=== PATIENT | male | born 1950 | race Caucasian/White ===

== ENCOUNTER 2022-09-16 12:57 | Emergency (ER) | payer MEDICARE, OTHER ==
[2022-09-16 13:59] LABS: #Eosinphils 0.1 thou/uL (0.0-0.7); #Lymphocytes 1.1 thou/uL (1.20-3.40); #Monocytes 0.8 thou/uL (0.11-0.59); %Basophils 0.4 % (0.0-1.0); %Eosinophils 0.7 % (0.0-10.0); %Lymphocytes 11.4 % (21.0-51.0); %Monocytes 7.5 % (0.0-10.0); Hemoglobin 13.3 g/dL (14.0-18.0); Large Platelets SLIGHT (None Seen); MDiff Complete? YES; Mean Corpuscular HGB CONC 33.3 g/dL (32.0-36.0); Mean Corpuscular Hemoglobin 30.8 pg (27.0-31.0); Mean Corpuscular Volume 92.4 fl (78.0-98.0); Mean Platelet Volume 14.6 fL (7.4-10.4); Platelet Count 135 10x3/uL (130-400); RBC Distribution Width 11.1 % (11.5-14.5); Red Blood Cell (RBC) Count 4.33 mill/uL (4.70-6.10)
[2022-09-16 14:12] LABS: ALT (SGPT) 14 U/L (8-55); AST (SGOT) 12 U/L (5-34); Albumin 4.3 g/dL (3.4-4.8); Alkaline Phosphatase 48 U/L (40-110); Anion Gap 16 mmol/L (10-20); BUN (Urea Nitrogen) 27 mg/dL (8.4-25.7); Bilirubin, Total 0.7 mg/dL (0.2-1.2); Calc. Creatinine Clearance 0 mL/min (70-130); Calcium 9.9 mg/dL (7.8-10.44); Carbon Dioxide 22 mmol/L (23-31); Chloride 104 mmol/L (98-107); Estimated GFR 70; Glucose 100 mg/dL (80-115); Potassium 4.2 mmol/L (3.5-5.1); Protein, Total 7.3 g/dL (5.8-8.1); Sodium 138 mmol/L (136-145)
[2022-09-16 14:13] LABS: Troponin I 0.017 ng/mL (< 0.028)
[2022-09-16 15:22] LABS: Bilirubin Negative (Negative); Blood, Urine Negative (Negative); Clarity Clear (Clear); Glucose, Urine (Dipstick) Negative (Negative); Ketone, Urine Negative (Negative); Leukocyte Negative (Negative); Nitrite Negative (Negative); Protein, Urine (Dipstick) Negative (Neg-Trace); Specific Gravity, Urine 1.015 (1.005-1.030); Urobilinogen 0.2 mg/dL (Less than 2)
[2022-09-16 15:32] LABS: CAUTI Indications for Culture Dysuria,urgency,freq; RBC/HPF None Seen HPF (0-3); Squamous Epithelial 0-3 HPF (0-3); WBC/HPF None Seen HPF (0-3)
[2022-09-16 15:33] LABS: Bacteria/HPF None Seen HPF (None Seen)
[2022-09-16 15:34] LABS: Urine Culture Reflex No No
== END 2022-09-16 16:09 | disposition home or self-care (01) ==
LOC: BURERS 12:57
DX: R53.1 Weakness (principal); I10 Essential (primary) hypertension
CPT/HCPCS: 71045; 71046; 80053; 81001; 83880; 84484; 85025; 93005

== ENCOUNTER 2022-10-24 10:17 | Emergency (ER) | payer MEDICARE, OTHER ==
[2022-10-24 10:59] LABS: ALT (SGPT) 18 U/L (8-55); AST (SGOT) 24 U/L (5-34); Alkaline Phosphatase 73 U/L (40-110); Anion Gap 20 mmol/L (10-20); BUN (Urea Nitrogen) 46 mg/dL (8.4-25.7); Bilirubin, Total 0.7 mg/dL (0.2-1.2); Calc. Creatinine Clearance 0 mL/min (70-130); Calcium 10.5 mg/dL (7.8-10.44); Carbon Dioxide 13 mmol/L (23-31); Chloride 105 mmol/L (98-107); Estimated GFR 38; Globulin 4.6 g/dL (2.4-3.5); Glucose 124 mg/dL (80-115); Hematocrit 36.5 % (42.0-52.0); Hemoglobin 11.8 g/dL (14.0-18.0); Mean Corpuscular HGB CONC 32.2 g/dL (32.0-36.0); Mean Platelet Volume 7.5 fL (7.4-10.4); Platelet Count 441 10x3/uL (130-400); Potassium 4.5 mmol/L (3.5-5.1); Protein, Total 8.6 g/dL (5.8-8.1); RBC Distribution Width 11.5 % (11.5-14.5); Red Blood Cell (RBC) Count 4.06 mill/uL (4.70-6.10); Sodium 133 mmol/L (136-145); White Blood Cell (WBC) Count 20.8 10x3/uL (4.8-10.8)
[2022-10-24 11:00] LABS: Troponin I Less than 0.010 ng/mL (< 0.028)
[2022-10-24 11:05] LABS: Band 3 % (5-11); Lymphocytes 6 % (21-51); MDiff Complete? YES; Monocytes 2 % (0-10); Neutrophil 89 % (42-75); Platelet Adequacy Comment Appears Increased
[2022-10-24] MEDS ORDERED: Ipratropium/Albuterol 3 ML NEB ONE (11:12)
[2022-10-24] MEDS ORDERED: cefTRIAXone (ROCEPHIN) 1 GM VIAL ONE (11:51)
== END 2022-10-24 12:39 | disposition home or self-care (01) ==
LOC: BURERS 10:17
DX: J18.9 Pneumonia, unspecified organism (principal); E86.0 Dehydration
CPT/HCPCS: 71045; 80053; 83605; 84484; 85025; 93005; 96361; 96374; J0696; J7620

== ENCOUNTER 2023-04-01 03:42 | Emergency (ER) | payer MEDICARE, OTHER ==
[2023-04-01] MEDS ORDERED: Lidocaine 4% Patch TD SCH (04:30)
[2023-04-01] MEDS ORDERED: Transdermal Patch Removal TOP SCH (18:00)
== END 2023-04-01 04:37 | disposition home or self-care (01) ==
LOC: BURERS 03:42
DX: S23.41XA Sprain of ribs, initial encounter (principal); S29.011A Strain of muscle and tendon of front wall of thorax, initial encounter; X50.0XXA Overexertion from strenuous movement or load, initial encounter; Y93.89 Activity, other specified; Z86.73 Personal history of transient ischemic attack (TIA), and cerebral infarction without residual deficits; Z79.02 Long term (current) use of antithrombotics/antiplatelets